=== PATIENT | female | born 1995 | race Caucasian/White ===

== ENCOUNTER 2021-09-28 03:01 | Emergency (ER) | payer MEDICAID, SELFPAY ==
[2021-09-28 03:04] VITALS: PULSE 78; RESP 14; TEMP 36.5; O2SAT 95
[2021-09-28] MEDS: FAMOTIDINE 20 MG/2 ML VIAL (03:16)
[2021-09-28] MEDS: diphenhydrAMINE HCl INJ 50 MG/ML VIAL (03:16)
[2021-09-28] MEDS: methylPREDNISolone SOD SUCC 125 MG VIAL (03:16)
--- NOTE | 2021-09-28 03:23 | ED.ALLEREA ---
HPI - Allergic Reaction General Chief complaint: Allergic Reaction Stated complaint: allergic reaction to hotel shampoo Time Seen by Provider: 09/28/21 03:15 Source: patient Mode of arrival: ambulatory Limitations: no limitations History of Present Illness HPI narrative: 26-year-old female presents emergency room secondary to a diffuse rash. She has diffuse urticaria at this time. Denies any difficulty breathing. States she has had allergic reactions in the past 1 time even had to get an epinephrine shot. She is currently traveling through the area. She thinks it was the shampoo at the hotel she is having reaction to. This all just started prior to coming to emergency room. Has and no other problems or complaints at this time. Related Data Home Medications Medication Instructions Recorded Confirmed albuterol sulfate INHALATION 09/28/21 Allergies Allergy/AdvReac Type Severity Reaction Status Date / Time isotretinoin [From Accutane] Allergy Anaphylaxis Verified 09/28/21 03:14 oseltamivir [From Tamiflu] Allergy Swelling Verified 09/28/21 03:14 of Lip/Tongue/Throat Review of Systems Review of Systems: CONSTITUTIONAL: Denies fever, chills, or sweats. EYES: Denies visual changes, redness, or discharge. ENT: Denies rhinorrhea, congestion, sore throat, or otalgia. CARDIOVASCULAR: Denies chest pain, palpitations, or edema. RESPIRATORY: Denies cough or dyspnea. GASTROINTESTINAL: Denies abdominal pain, nausea, vomiting, or diarrhea. GENITOURINARY: Denies dysuria or hematuria. SKIN: Diffuse urticarial rash MUSCULOSKELETAL: Denies back pain, joint pain, or myalgia. NEUROLOGIC: Denies headache, numbness, or weakness. PSYCHIATRIC: Denies anxiety or depression. Exam Narrative: APPEARANCE: Well appearing, no pain or distress, well-nourished. Head normocephalic and atraumatic. EYES: PERRLA/EOMI, conjunctivae very clear. NOSE: Normal with no drainage EARS:TMS clear Amadeo Patel, with good light reflex. THROAT: Pharynx clear, no exudate. NECK: Supple. No adenopathy, no masses. RESPIRATORY: Airway patent, respirations nonlabored. Clear to auscultation bilaterally, no rales, rhonchi, wheezing. CARDIOVASCULAR: Regular rate and rhythm without murmurs, rubs, or gallops. ABDOMINAL: Soft, nontender, nondistended, no hepatosplenomegaly Musculoskeletal: Moves all extremities. Strength/ROM intact, No edema, No calf tenderness. NEURO: Alert. Cranial nerves II through XII intact. Normal gait. Good coordination. Nonfocal examination. SKIN:: Diffuse urticarial rash PSYCHIATRIC: Normal affect/mood, normal interaction Course Vital Signs Vital signs: Vital Signs Temperature 97.7 F 09/28/21 03:04 Pulse Rate 78 09/28/21 03:04 Respiratory Rate 14 09/28/21 03:04 Pulse Oximetry 95 09/28/21 03:04 Temperature 97.7 F 09/28/21 03:04 Pulse Rate 78 09/28/21 03:04 Respiratory Rate 14 09/28/21 03:04 Pulse Oximetry 95 09/28/21 03:04 MDM - Allergic Reaction MDM Narrative Medical decision making narrative: Patient comes in with typical urticaria with allergic reaction. She is given appropriate medications for this reevaluated already having almost complete resolution. Discharge Plan Discharge Clinical Impression: Urticaria Patient Disposition: Home, Self-Care Condition: Improved Instructions: Urticaria (ED) Additional Instructions: Take Zyrtec 10 mg a day. Return if worse. Prescriptions: No Action albuterol sulfate 90 mcg/actuation Hfa Aerosol Inhaler INHALATION RF: 0 Follow-up/Referrals: PHYSICIAN,INTERNATIONAL TRAVEL CONSULTANT [Primary Care Provider] - Time of Disposition: 04:02
[2021-09-28] MEDS: ONDANSETRON INJ 4 MG/2 ML VIAL IV PUSH (03:27)
[2021-09-28 04:32] VITALS: BP 108/70; PULSE 88; RESP 16; O2SAT 100
--- NOTE | 2021-09-28 04:32 | PC.NURSE ---
Pt rash and itching improved at this time.
== END 2021-09-28 04:52 | disposition home or self-care (01) ==
PROVIDERS: Emergency Provider Emergency Medicine
DX: L50.0 Allergic urticaria (principal)
CPT/HCPCS: 96374; 96375; 99284; J1200; J2405; J2930